=== PATIENT | female | born 1960 | race African-American/Black ===

== ENCOUNTER 2020-12-11 13:27 | Emergency (ER) | payer OTHER | END 2020-12-11 14:21 | disposition home or self-care (01) | LOC: NAV ERS 13:27 | DX: G89.18 Other acute postprocedural pain (principal); K08.89 Other specified disorders of teeth and supporting structures; E78.00 Pure hypercholesterolemia, unspecified; F17.210 Nicotine dependence, cigarettes, uncomplicated | CPT/HCPCS: 99282 ==

== ENCOUNTER 2021-01-29 11:58 | Emergency (ER) | payer OTHER | END 2021-01-29 12:36 | disposition home or self-care (01) | LOC: NAV ERS 11:58 | DX: T78.40XA Allergy, unspecified, initial encounter (principal); E78.00 Pure hypercholesterolemia, unspecified; F17.210 Nicotine dependence, cigarettes, uncomplicated; Z79.899 Other long term (current) drug therapy | CPT/HCPCS: 99283 ==